=== PATIENT | female | born 1950 | race Caucasian/White ===

== ENCOUNTER → 2017-04-07 | Outpatient (CLI) | payer OTHER ==
[~2017-04-07] MED LIST: ASPI-1197 PO; ATOR40TA71 PO; FURO-151 PO; HUM100IN SQ; INVOK100TB PO; LEVO200T10 PO; MAGN250T2 PO; METF500T6 PO; TETR250C PO
== END | disposition home or self-care (01) ==
LOC: RAH 12:37
PROVIDERS: ATTEND Physician Assistant Medical
DX: N13.30 Unspecified hydronephrosis (principal); E04.2 Nontoxic multinodular goiter
CPT/HCPCS: 76536; 76770

== ENCOUNTER → 2017-04-21 | Outpatient (CLI) | payer OTHER | END | disposition home or self-care (01) | LOC: OIH 09:34 | PROVIDERS: ATTEND Urology | DX: N13.30 Unspecified hydronephrosis (principal); K43.9 Ventral hernia without obstruction or gangrene | CPT/HCPCS: 74176 ==

== ENCOUNTER → 2017-04-26 | Outpatient (CLI) | payer OTHER ==
[~2017-04-26] MED LIST changes: -TETR250C PO; +[UNRECOGNIZED DRUG - CODE] PO
== END | disposition home or self-care (01) ==
LOC: SLP 20:24
PROVIDERS: ATTEND Physician Assistant Medical
DX: G47.33 Obstructive sleep apnea (adult) (pediatric) (principal)
CPT/HCPCS: 95811

== ENCOUNTER → 2017-07-19 | Outpatient (CLI) | payer OTHER | END | disposition home or self-care (01) | LOC: SLP 20:21 | PROVIDERS: ATTEND Internal Medicine Critical Care Medicine | DX: G47.33 Obstructive sleep apnea (adult) (pediatric) (principal) | CPT/HCPCS: 95810 ==

== ENCOUNTER 2017-10-19 11:22 | Observation (INO) | payer OTHER ==
[2017-10-18 15:47] LABS: BASOPHILS % (AUTO) 0.9 % (0.0-5.0); EOSINOPHILS % (AUTO) 3.5 % (0.0-8.0); HEMATOCRIT 39.9 % (36-48); LYMPHOCYTES % (AUTO) 23.1 % (21.0-51.0); MEAN CORPUSCULAR HEMOGLOBIN 30.1 pg (27.0-33.0); MEAN CORPUSCULAR HGB CONC 32.8 g/dL (32.0-36.0); MEAN CORPUSCULAR VOLUME 91.8 fL (79-99); MONOCYTES % (AUTO) 8.9 % (3.0-13.0); NEUTROPHILS % (AUTO) 63.6 % (40.0-77.0); NUCLEATED RED BLOOD CELLS 0.1 % (0.0-0.19); PLATELET COUNT (AUTO) 202 K/uL (130-400); RED BLOOD CELL COUNT(AUTO) 4.35 MIL/uL (4.00-5.50); RED CELL DISTRIBUTION WIDTH 14.9 % (11.0-15.5); WHITE BLOOD COUNT (AUTO) 8.8 K/uL (4.8-10.8)
[2017-10-18 15:58] LABS: CREATININE 0.9 mg/dL (0.5-1.5); POTASSIUM 3.9 mmol/L (3.5-5.1)
[2017-10-18 16:02] LABS: INR 0.97 (0.85-1.15); PARTIAL THROMBOPLASTIN TIME 29.8 SEC (26.3-35.5); PROTHROMBIN TIME 10.2 SEC (9.6-11.6)
[2017-10-18 21:00] VITALS: BP 162/88
[2017-10-18 21:15] VITALS: BP 132/76
[2017-10-18 21:30] VITALS: BP 137/68
[2017-10-18 21:45] VITALS: BP 133/76
[2017-10-19] VITALS (22 sets, daily range): BP systolic 106–162; BP diastolic 44–88
[~2017-10-19] VITALS: Ht 170.2 cm; Wt 134.3 kg
[~2017-10-19 11:22] MED LIST changes: +APIX5TAB PO; +CANA300T PO; +CHOL200013 PO; -HUM100IN SQ; +HUM10VIA6 SQ; +HYDR-309 PO; -INVOK100TB PO; +LEVO175T9 PO; -LEVO200T10 PO; +LISI-617 PO; -MAGN250T2 PO; -METF500T6 PO; +METO100T14 PO; +VIT1CAPS47 PO
[2017-10-19] MEDS ORDERED: SODIUM CHLORIDE 0.9% 1000ML 1,000 ML IV ONE (12:00)
[2017-10-19] MEDS ORDERED: CLINDAMYCIN 900 MG/D5% WATER 50 ML IV ONE (12:00)
[2017-10-19] MEDS ORDERED: CLINDAMYCIN PHOSPHATE 150 MG/ML 6ML VIAL ONE (14:55)
[2017-10-19] MEDS ORDERED: MIDAZOLAM HCL 1 MG/ML 2ML VIAL ONE (16:05)
[2017-10-19] MEDS ORDERED: LIDOCAINE PF 2% 5ML ABBOJECT ONE ×2 (16:09→19:12)
[2017-10-19] MEDS ORDERED: PROPOFOL 10 MG/ML 20ML VIAL IV ONE (16:10)
[2017-10-19] MEDS ORDERED: ROCURONIUM 10MG/1ML SYR 10 MG/ML ML ONE ×2 (16:10→16:31)
[2017-10-19] MEDS ORDERED: ROPIVACAINE 0.5% 5MG/ML 30ML IJ ONE (16:24)
[2017-10-19] MEDS ORDERED: FENTANYL CITRATE PF 50 MCG/1 ML 2ML VIAL ONE (16:31)
[2017-10-19] MEDS ORDERED: EPHEDRINE SULFATE 50 MG/ML AMPULE ONE ×2 (16:53→17:23)
[2017-10-19] MEDS ORDERED: GLYCOPYRROLATE 1 MG/5 ML SYRINGE ONE (17:19)
[2017-10-19] MEDS: SODIUM CHLORIDE 0.9% 1000ML 1,000 ML IV SCH (19:05)
[2017-10-19] MEDS ORDERED: LIDOCAINE HCL-MPF 1% 2ML VIAL IVP PRN (19:15)
[2017-10-19] MEDS ORDERED: DIPHENHYDRAMINE HCL 25 MG CAPSULE PO PRN (19:15)
[2017-10-19] MEDS ORDERED: HYDROCODONE/ACETAMINOPHEN 5/325 MG TAB PO PRN ×2 (19:15)
[2017-10-19] MEDS ORDERED: KETOROLAC TROMETHAMINE 15MG/ML IV PRN (19:15)
[2017-10-19] MEDS ORDERED: POTASSIUM CHLORIDE 20MEQ/100ML 100 ML IV PRN (19:15)
[2017-10-19] MEDS ORDERED: TEMAZEPAM 15 MG CAPSULE PO PRN (19:15)
[2017-10-19] MEDS ORDERED: POTASSIUM CHLORIDE 20 MEQ ERTAB PO PRN (19:15)
[2017-10-19] MEDS ORDERED: POTASSIUM CHLORIDE 10% ELIXIR 20 MEQ/15 ML UDCUP PO PRN (19:15)
[2017-10-19] MEDS ORDERED: DiphenhydrAMINE HCL 50 MG/ML VIAL IVP PRN (19:15)
[2017-10-19] MEDS ORDERED: FERROUS FUMARATE 324 MG TABLET PO PRN (19:15)
[2017-10-19] MEDS ORDERED: CALCIUM CARBONATE 500 MG TABLET PO PRN (19:15)
[2017-10-19] MEDS: INSULIN HUMULIN R 100 UNIT/ML 3ML SQ SCH (21:00)
[2017-10-19] MEDS: FAMOTIDINE 20MG TAB 20 MG TAB PO SCH (21:00)
[2017-10-19] MEDS: CELECOXIB 200 MG CAP PO SCH (21:00)
[2017-10-20] MEDS: CLINDAMYCIN 900 MG/D5% WATER 50 ML IV SCH ×2 (00:15→08:30)
[2017-10-20] MEDS ORDERED: HYDROCODONE/ACETAMINOPHEN 5/325 MG TAB PO PRN (01:15)
[2017-10-20] MEDS: SODIUM CHLORIDE 0.9% 1000ML 1,000 ML IV SCH ×2 (04:13→15:05)
[2017-10-20 04:28] VITALS: BP 147/59
[2017-10-20 04:29] LABS: HEMATOCRIT 35.3 % (36-48); MEAN CORPUSCULAR HGB CONC 32.6 g/dL (32.0-36.0); MEAN CORPUSCULAR VOLUME 92.1 fL (79-99); PLATELET COUNT (AUTO) 197 K/uL (130-400); RED BLOOD CELL COUNT(AUTO) 3.83 MIL/uL (4.00-5.50); WHITE BLOOD COUNT (AUTO) 13.3 K/uL (4.8-10.8)
[2017-10-20 04:41] LABS: CREATININE 0.9 mg/dL (0.5-1.5)
[2017-10-20] MEDS ORDERED: HYDROMORPHONE PCA 10 MG/50 ML 50 ML IV ONE (05:32)
[2017-10-20] MEDS: INSULIN HUMULIN R 100 UNIT/ML 3ML SQ SCH ×3 (05:57→16:33)
[2017-10-20] MEDS ORDERED: NALOXONE HCL 0.4 MG/1 ML ML IVP PRN (06:00)
[2017-10-20] MEDS ORDERED: HYDROMORPHONE PCA 10 MG/50 ML 50 ML IV PRN (06:00)
[2017-10-20] MEDS ORDERED: LEVOTHYROXINE 100 MCG TABLET PO SCH (06:30)
[2017-10-20] MEDS ORDERED: LEVOTHYROXINE 75 MCG TABLET PO SCH (06:30)
[2017-10-20 08:00] VITALS: BP 138/54
[2017-10-20] MEDS: CELECOXIB 200 MG CAP PO SCH (08:31)
[2017-10-20] MEDS: FAMOTIDINE 20MG TAB 20 MG TAB PO SCH (08:32)
[2017-10-20] MEDS ORDERED: INSULIN HUMULIN 70/30 100 UNIT/ML 3ML SQ SCH (09:00)
[2017-10-20] MEDS ORDERED: PRESERVISION AREDS PO SCH (09:00)
[2017-10-20] MEDS ORDERED: TETRACYCLINE 250 MG PO SCH (09:00)
[2017-10-20] MEDS ORDERED: ***HM***Cholecalciferol (Vitamin D3) 2,000 UNIT PO SCH (09:00)
[2017-10-20] MEDS ORDERED: POLYETHYLENE GLYCOL 3350 17 GM POWD.PACK PO SCH (09:00)
[2017-10-20] MEDS ORDERED: ASPIRIN 81MG TAB.CHEW PO SCH (09:00)
[2017-10-20] MEDS ORDERED: METOPROLOL TARTRATE 50 MG TAB PO SCH (09:00)
[2017-10-20] MEDS ORDERED: APIXABAN 5 MG TABLET PO SCH (09:00)
[2017-10-20] MEDS ORDERED: LISINOPRIL 5 MG TABLET PO SCH (09:00)
[2017-10-20] MEDS ORDERED: CANAGLIFLOZIN 300 MG PO SCH (09:00)
[2017-10-20] MEDS ORDERED: FUROSEMIDE 40 MG TABLET PO SCH (09:00)
[2017-10-20] MEDS ORDERED: PSYLLIUM SEED 1 EACH PACKET PO SCH (12:00)
[2017-10-20 16:00] VITALS: BP 96/68
[2017-10-20 20:25] VITALS: BP 125/60
[2017-10-20] MEDS ORDERED: ATORVASTATIN CALCIUM 40 MG TABLET PO SCH (21:00)
[2017-10-21] MEDS ORDERED: BISACODYL 5 MG TABLET.DR PO PRN (19:15)
[2017-10-22] MEDS ORDERED: BISACODYL 10 MG SUPP.RECT RC PRN (19:15)
== END 2017-10-20 20:50 | disposition home health service (06) ==
LOC: DAH 11:22 → DAHIP 11:23 → 4BH 20:45
PROVIDERS: ADMIT Orthopaedic Surgery; ATTEND Orthopaedic Surgery
DX: S42.332A Displaced oblique fracture of shaft of humerus, left arm, initial encounter for closed fracture (principal); M75.102 Unspecified rotator cuff tear or rupture of left shoulder, not specified as traumatic; I25.10 Atherosclerotic heart disease of native coronary artery without angina pectoris; I10 Essential (primary) hypertension; E78.5 Hyperlipidemia, unspecified; E11.9 Type 2 diabetes mellitus without complications; G47.33 Obstructive sleep apnea (adult) (pediatric); E66.01 Morbid (severe) obesity due to excess calories; W19.XXXA Unspecified fall, initial encounter; Y92.89 Other specified places as the place of occurrence of the external cause; Y93.89 Activity, other specified; Y99.8 Other external cause status
CPT/HCPCS: 24516; 36415 ×2; 76000; 80048 ×2; 82948 ×6; 85025; 85027; 85610; 85730; 86850; 86900; 86901; 96365; 96366; 96372; 96375; 97116 ×2; 97161; 97530 ×2; A4600; A4930 ×2; A6207; C1713 ×3; C1776 ×2; G0168; G0378 ×33; G8978; G8979; G8980; G8981; G8982; G8983; J1170; J1815 ×2; J1885; J2001 ×2; J2250; J2704; J2795; J3010; J3490 ×6; J7030 ×2

== ENCOUNTER → 2018-06-21 | Outpatient (CLI) | payer OTHER ==
[~2018-06-21] MED LIST changes: -HYDR-309 PO; +HYDR-4457 PO
== END | disposition home or self-care (01) ==
LOC: SHCH 13:16
PROVIDERS: ATTEND Internal Medicine Cardiovascular Disease
DX: I65.23 Occlusion and stenosis of bilateral carotid arteries (principal); I25.10 Atherosclerotic heart disease of native coronary artery without angina pectoris
CPT/HCPCS: 93880

== ENCOUNTER → 2019-07-25 | Outpatient (CLI) | payer OTHER | END | disposition home or self-care (01) | LOC: RAH 11:00 | PROVIDERS: ATTEND Internal Medicine Critical Care Medicine | DX: E04.2 Nontoxic multinodular goiter (principal) | CPT/HCPCS: 76536 ==

== ENCOUNTER → 2019-08-03 | Outpatient (CLI) | payer OTHER | END | disposition home or self-care (01) | LOC: SHCH 11:29 | PROVIDERS: ATTEND Internal Medicine Cardiovascular Disease | DX: I10 Essential (primary) hypertension (principal) | CPT/HCPCS: 93306 ==

== ENCOUNTER → 2019-08-17 | Outpatient (CLI) | payer OTHER | END | disposition home or self-care (01) | LOC: SHCH 13:42 | PROVIDERS: ATTEND Internal Medicine Cardiovascular Disease | DX: I65.23 Occlusion and stenosis of bilateral carotid arteries (principal) ==

== ENCOUNTER 2020-01-15 07:02 | Day surgery (SDC) | payer OTHER ==
[~2020-01-15] VITALS: Ht 167.6 cm; Wt 126.1 kg
[~2020-01-15 07:02] MED LIST changes: -APIX5TAB PO; -CANA300T PO; -CHOL200013 PO; +CINN1CAP PO; +DABI150C PO; +DULA1.5P SQ; +EMPA25TA PO; -FURO-151 PO; +FURO40TA5 PO; +HUM10VIA SQ; -HUM10VIA6 SQ; -HYDR-4457 PO; -LEVO175T9 PO; +LEVO200C2 PO; +LEVO25CA4 PO; +MELA3CAP2 PO; +MV-M1TAB20 PO; +SODIUM CHLORIDE 0.9% 1000ML 1,000 ML IV ONE
[2020-01-15 07:20] VITALS: BP 174/66
[2020-01-15] MEDS ORDERED: EPHEDRINE SULFATE 50 MG/ML AMPULE ONE (09:19)
[2020-01-15] MEDS ORDERED: PROPOFOL 10 MG/ML 20ML VIAL IV ONE (09:27)
[2020-01-15 09:35] VITALS: BP 87/32
[2020-01-15 09:40] VITALS: BP 101/35
[2020-01-15 09:45] VITALS: BP_SYST 120; BP_SYST 121; BP_DIAS 48
[2020-01-15 09:50] VITALS: BP 116/91
[2020-01-15 09:55] VITALS: BP 121/91
== END 2020-01-15 10:08 | disposition home or self-care (01) ==
LOC: ENDO 07:02 → DAH 07:02 → ENDO 10:08
PROVIDERS: ATTEND Internal Medicine Gastroenterology
DX: R19.5 Other fecal abnormalities (principal); I48.91 Unspecified atrial fibrillation; I10 Essential (primary) hypertension; E11.9 Type 2 diabetes mellitus without complications; E78.5 Hyperlipidemia, unspecified; E03.9 Hypothyroidism, unspecified; Z95.1 Presence of aortocoronary bypass graft; Z79.4 Long term (current) use of insulin; Z79.82 Long term (current) use of aspirin; Z79.899 Other long term (current) drug therapy; Z20.828 Contact with and (suspected) exposure to other viral communicable diseases
CPT/HCPCS: 82948 ×2; 93005; A4215 ×2; A4221; A4222; A4223; A4606; A4620; A4657; A4663; C9803; G0121; J2704; J3490; J7030; U0003; G0105

== ENCOUNTER → 2021-05-05 | Outpatient (CLI) | payer OTHER ==
[~2021-05-05] MED LIST changes: -LISI-617 PO; +LISI5TAB21 PO; -SODIUM CHLORIDE 0.9% 1000ML 1,000 ML IV ONE
== END | disposition home or self-care (01) ==
LOC: RAH 13:21
PROVIDERS: ATTEND Internal Medicine Critical Care Medicine
DX: N13.2 Hydronephrosis with renal and ureteral calculous obstruction (principal); N32.89 Other specified disorders of bladder
CPT/HCPCS: 76770

== ENCOUNTER → 2021-06-24 | Outpatient (CLI) | payer OTHER ==
[2021-06-24 15:55] LABS: BASOPHILS % (AUTO) 0.8 % (0.0-5.0); EOSINOPHILS % (AUTO) 1.8 % (0.0-8.0); HEMATOCRIT 46.2 % (36-48); LYMPHOCYTES % (AUTO) 22.7 % (21.0-51.0); MEAN CORPUSCULAR HEMOGLOBIN 29.7 pg (27.0-33.0); MEAN CORPUSCULAR HGB CONC 32.3 g/dL (32.0-36.0); NEUTROPHILS % (AUTO) 66.4 % (40.0-77.0); PLATELET COUNT (AUTO) 211 K/uL (130-400); RED BLOOD CELL COUNT(AUTO) 5.02 MIL/uL (4.00-5.50); RED CELL DISTRIBUTION WIDTH 14.4 % (11.0-15.5); WHITE BLOOD COUNT (AUTO) 9.2 K/uL (4.8-10.8)
[2021-06-24 16:05] LABS: CREATININE 0.8 mg/dL (0.5-1.5); POTASSIUM 4.3 mmol/L (3.5-5.1)
== END | disposition home or self-care (01) ==
LOC: RAH 15:07
PROVIDERS: ATTEND Urology
DX: N13.30 Unspecified hydronephrosis (principal); N13.39 Other hydronephrosis; N20.2 Calculus of kidney with calculus of ureter
CPT/HCPCS: 36415; 74176; 80048; 85025

== ENCOUNTER → 2021-09-21 | Outpatient (CLI) | payer OTHER ==
[~2021-09-21] VITALS: Ht 167.6 cm; Wt 109.3 kg
[~2021-09-21] MED LIST changes: +REGADENOSON 0.4 MG/5 ML PF SYG IVP SCH
== END | disposition home or self-care (01) ==
LOC: SHCH 08:15
PROVIDERS: ATTEND Internal Medicine Cardiovascular Disease
DX: I35.8 Other nonrheumatic aortic valve disorders (principal); I11.9 Hypertensive heart disease without heart failure; I48.0 Paroxysmal atrial fibrillation; E11.9 Type 2 diabetes mellitus without complications; E78.5 Hyperlipidemia, unspecified; I48.20 Chronic atrial fibrillation, unspecified; I48.92 Unspecified atrial flutter; Z95.1 Presence of aortocoronary bypass graft
CPT/HCPCS: 78452; 93306; 93017; J2785; A9500 ×2; 96374

== ENCOUNTER → 2021-10-20 | Outpatient (CLI) | payer OTHER ==
[~2021-10-20] MED LIST changes: +FUROSEMIDE 40MG VIAL ONE; -REGADENOSON 0.4 MG/5 ML PF SYG IVP SCH
[2021-10-20 14:34] LABS: BASOPHILS % (AUTO) 0.9 % (0.0-5.0); EOSINOPHILS % (AUTO) 1.9 % (0.0-8.0); HEMATOCRIT 42.2 % (36-48); LYMPHOCYTES % (AUTO) 20.6 % (21.0-51.0); MEAN CORPUSCULAR HEMOGLOBIN 30.5 pg (27.0-33.0); MEAN CORPUSCULAR HGB CONC 32.7 g/dL (32.0-36.0); MEAN CORPUSCULAR VOLUME 93.2 fL (79-99); MONOCYTES % (AUTO) 8.3 % (3.0-13.0); NEUTROPHILS % (AUTO) 67.8 % (40.0-77.0); PLATELET COUNT (AUTO) 237 K/uL (130-400); RED BLOOD CELL COUNT(AUTO) 4.53 MIL/uL (4.00-5.50); RED CELL DISTRIBUTION WIDTH 13.3 % (11.0-15.5); WHITE BLOOD COUNT (AUTO) 9.6 K/uL (4.8-10.8)
[2021-10-20 14:45] LABS: CREATININE 0.8 mg/dL (0.5-1.5); POTASSIUM 4.2 mmol/L (3.5-5.1)
== END | disposition home or self-care (01) ==
LOC: RAH 13:45
PROVIDERS: ATTEND Urology
DX: N13.39 Other hydronephrosis (principal); N13.30 Unspecified hydronephrosis; Z87.442 Personal history of urinary calculi
CPT/HCPCS: 78708; 80048; 85025; 36415; J1940; A9562

== ENCOUNTER 2021-11-20 06:48 | Day surgery (SDC) | payer OTHER ==
[2021-11-19 11:47] LABS: BASOPHILS % (AUTO) 0.7 % (0.0-5.0); EOSINOPHILS % (AUTO) 1.5 % (0.0-8.0); HEMATOCRIT 43.6 % (36-48); LYMPHOCYTES % (AUTO) 17.8 % (21.0-51.0); MEAN CORPUSCULAR HEMOGLOBIN 30.5 pg (27.0-33.0); MEAN CORPUSCULAR HGB CONC 32.8 g/dL (32.0-36.0); MONOCYTES % (AUTO) 9.6 % (3.0-13.0); NEUTROPHILS % (AUTO) 70.1 % (40.0-77.0); PLATELET COUNT (AUTO) 221 K/uL (130-400); RED BLOOD CELL COUNT(AUTO) 4.69 MIL/uL (4.00-5.50); RED CELL DISTRIBUTION WIDTH 13.6 % (11.0-15.5); WHITE BLOOD COUNT (AUTO) 9.7 K/uL (4.8-10.8)
[2021-11-19 11:49] LABS: POTASSIUM 3.8 mmol/L (3.5-5.1)
[2021-11-19 12:09] LABS: INR 1.26 (0.85-1.15); PROTHROMBIN TIME 13.6 SEC (9.6-11.6)
[2021-11-19 12:11] LABS: PARTIAL THROMBOPLASTIN TIME 48.1 SEC (26.3-35.5)
[2021-11-19 12:26] LABS: B-TYPE NATRIURETIC PEPTIDE 49 pg/mL (0-100)
[2021-11-19 12:57] LABS: APPEARANCE,URINE CLEAR (CLEAR); BILIRUBIN,URINE NEGATIVE (NEGATIVE); COLOR,URINE COLORLESS (YELLOW); GLUCOSE, URINE (UA) >=1000 mg/dL (NEGATIVE); KETONES,URINE NEGATIVE (NEGATIVE); LEUKOCYTE ESTERASE ,URINE NEGATIVE Leu/uL (NEGATIVE); NITRATE,URINE NEGATIVE (NEGATIVE); OCCULT BLOOD,URINE NEGATIVE (NEGATIVE); PH,URINE 5.5 (5.0-8.0); PROTEIN,URINE NEGATIVE (NEGATIVE); UROBILINOGEN,URINE 0.2 mg/dL (0.2-1.0)
[2021-11-19 13:08] VITALS: BP 149/74
[2021-11-19 13:13] LABS: BACTERIA,URINE Rare /HPF (None Seen); RBC,URINE None Seen /HPF (0-1); SQUAMOUS EPITHELIAL CELL,UR 0-2 /HPF (0-2); WBC,URINE None Seen /HPF (0-1)
[2021-11-20] VITALS (12 sets, daily range): BP systolic 105–174; BP diastolic 45–72
[~2021-11-20] VITALS: Ht 167.6 cm; Wt 103.2 kg
[~2021-11-20 06:48] MED LIST changes: +ANTI1CAP5 PO; -CINN1CAP PO; -DULA1.5P SQ; -FUROSEMIDE 40MG VIAL ONE; -HUM10VIA SQ; -LEVO200C2 PO; -LEVO25CA4 PO; +LEVO25TA85 PO; -MELA3CAP2 PO; -MV-M1TAB20 PO; +SEMA1PEN3 SQ; -VIT1CAPS47 PO; +[UNRECOGNIZED DRUG - CODE] PO
[2021-11-20] MEDS ORDERED: 0.9%NACL 1000ML 1,000 ML IV ONE (07:09)
[2021-11-20] MEDS ORDERED: LIDOCAINE HCL 1% 20 ML VIAL ONE (08:52)
[2021-11-20] MEDS ORDERED: HEPARIN 10,000 UNIT/10ML (1,000 UNIT/ML) VIAL ONE (08:52)
[2021-11-20] MEDS ORDERED: IOHEXOL 350 MG/ML 100ML INFUS..BTL IV ONE (08:52)
[2021-11-20] MEDS ORDERED: NITROGLYCERIN 50MG VIAL ONE (08:52)
[2021-11-20] MEDS ORDERED: MEPERIDINE-PF 25 MG/ML SYG ONE ×3 (08:53→09:14)
[2021-11-20] MEDS ORDERED: MIDAZOLAM HCL 1 MG/ML 2ML VIAL ONE ×3 (08:53→09:14)
[2021-11-20] MEDS ORDERED: 0.9%NACL 1000ML 1,000 ML IV SCH (10:00)
[2021-11-20] MEDS ORDERED: DEXTROSE 50%-WATER 50 ML DISP.SYRIN IV PRN (10:00)
[2021-11-20] MEDS ORDERED: GLUCAGON 1MG KIT 1 MG ML IM PRN (10:00)
[2021-11-20] MEDS ORDERED: INSULIN HUMULIN R 100 UNIT/ML 3ML SQ SCH (11:30)
== END 2021-11-20 15:35 | disposition home or self-care (01) ==
LOC: DAH 06:48
PROVIDERS: ATTEND Internal Medicine Cardiovascular Disease
DX: I25.119 Atherosclerotic heart disease of native coronary artery with unspecified angina pectoris (principal); I10 Essential (primary) hypertension; I25.82 Chronic total occlusion of coronary artery; E66.9 Obesity, unspecified; I87.2 Venous insufficiency (chronic) (peripheral); G47.33 Obstructive sleep apnea (adult) (pediatric); I48.91 Unspecified atrial fibrillation; Z95.1 Presence of aortocoronary bypass graft; Z98.890 Other specified postprocedural states; Z98.891 History of uterine scar from previous surgery; Z82.49 Family history of ischemic heart disease and other diseases of the circulatory system; Z79.899 Other long term (current) drug therapy
CPT/HCPCS: 80048; 83880; 85025; 85610; 85730; 81001; 36415; 71045; 93005; 93459; 82948 ×2; C1769; C1894; C1760; J7030; J2250 ×2; J2175 ×2; J1644; J3490; Q9967; A4215; A4221; A4663; A4216; A4606; C1751; Q9965; A4223 ×3; 96374; 96375; 99156; 99157

== ENCOUNTER → 2023-01-05 | Outpatient (CLI) | payer OTHER | END | disposition home or self-care (01) | LOC: SHCH 14:27 | PROVIDERS: ATTEND Internal Medicine Cardiovascular Disease | DX: I65.23 Occlusion and stenosis of bilateral carotid arteries (principal); R55 Syncope and collapse | CPT/HCPCS: 93880 ==